=== PATIENT | male | born 1950 | race African-American/Black ===

== ENCOUNTER 2017-06-11 10:44 | Emergency (ER) | payer MEDICARE, MEDICAID ==
[~2017-06-11] VITALS: Ht 170.2 cm; Wt 73.0 kg
[~2017-06-11 10:44] MED LIST: ASPI-1159 PO; ASPI-518; FOLIC ACID; METH10TA2 PO; MULTIVITAMIN
[2017-06-11 10:54] VITALS: BP 135/78
[2017-06-11] MEDS ORDERED: CARBAMIDE PEROXIDE 6.5% OTIC SOLN 15ML EACH EAR ONE (11:15)
== END 2017-06-11 13:00 | disposition home or self-care (01) ==
LOC: ER 12:31
DX: H61.23 Impacted cerumen, bilateral (principal); J44.9 Chronic obstructive pulmonary disease, unspecified; F11.10 Opioid abuse, uncomplicated; F17.210 Nicotine dependence, cigarettes, uncomplicated
CPT/HCPCS: 69209; 99283

== ENCOUNTER 2017-09-07 16:27 | Emergency (ER) | payer MEDICARE, MEDICAID ==
[~2017-09-07] VITALS: Ht 167.6 cm; Wt 70.0 kg
[2017-09-07 16:50] VITALS: BP 141/77
== END 2017-09-07 19:12 | disposition home or self-care (01) ==
LOC: ER 16:40
DX: R42 Dizziness and giddiness (principal); R00.1 Bradycardia, unspecified; Z85.46 Personal history of malignant neoplasm of prostate; Z79.82 Long term (current) use of aspirin
CPT/HCPCS: 93005; 99283

== ENCOUNTER 2018-02-07 00:09 | Emergency (ER) | payer MEDICARE, MEDICAID ==
[~2018-02-07] VITALS: Ht 172.7 cm; Wt 72.7 kg
[2018-02-07] MEDS ORDERED: SODIUM CHLORIDE 0.9% 1,000 ML IV ONE (01:50)
[2018-02-07] MEDS ORDERED: ASPIRIN 81MG TABLET PO ONE (02:00)
[2018-02-07 02:20] VITALS: BP 128/75
== END 2018-02-07 03:08 | disposition home or self-care (01) ==
LOC: ER 00:31 → CANBEDREQ 03:28
DX: R07.89 Other chest pain (principal); R03.0 Elevated blood-pressure reading, without diagnosis of hypertension; F17.210 Nicotine dependence, cigarettes, uncomplicated; Z85.46 Personal history of malignant neoplasm of prostate
CPT/HCPCS: 71045; 93005; 99285; C1893; J7030

== ENCOUNTER 2018-02-10 17:05 | Emergency (ER) | payer MEDICARE, MEDICAID ==
[~2018-02-10] VITALS: Ht 167.6 cm; Wt 71.0 kg
[2018-02-10] MEDS ORDERED: METHYLPREDNISOLONE SOD SUCC 125 MG/2 ML VIAL IV STA (18:24)
[2018-02-10] MEDS ORDERED: ONDANSETRON HCL 4MG/2ML VIAL IV STA (18:24)
[2018-02-10] MEDS ORDERED: MORPHINE SULFATE 4 MG/ML CPJ (NOT FOR IM USE) IV STA (18:24)
[2018-02-10] MEDS ORDERED: SODIUM CHLORIDE 0.9% 1,000 ML IV ONE (18:24)
[2018-02-10] MEDS ORDERED: IPRATROPIUM/ALBUTEROL 0.5-3(2.5)MG/3ML NEB HHN ONE (18:30)
[2018-02-10] MEDS ORDERED: LEVOFLOXACIN 500MG PREMIX 100 ML IV ONE (18:30)
[2018-02-10 18:40] LABS: BASOPHILS % 0.8 % (0.0-2.0); EOSINOPHILS % 0.9 % (0.0-5.0); HEMATOCRIT. 34.6 % (42.0-52.0); HEMOGLOBIN. 11.3 g/dL (14.0-18.0); LYMPHOCYTES % 20.3 % (20.0-50.0); MEAN CORPUSCULAR HEMOGLOBIN 24.2 pg (28.0-32.0); MEAN CORPUSCULAR VOLUME 73.9 fL (80.0-94.0); MEAN PLATELET VOLUME 7.1 fl (7.4-10.4); MONOCYTES % 6.7 % (2.0-8.0); NEUTROPHILS % 71.3 % (40.0-76.0); PLATELET 276 x1000/uL (130-400); RED BLOOD CELL COUNT 4.68 mill/uL (4.7-6.1)
[2018-02-10 18:45] LABS: CHLORIDE 105 mEq/L (98-107)
[2018-02-10 18:48] LABS: INR 1.1; PARTIAL THROMBOPLASTIN TIME 23.6 sec (23.4-31.0)
[2018-02-10] MEDS ORDERED: LEVOFLOXACIN 500MG TABLET PO ONE (20:00)
[2018-02-10 20:05] VITALS: BP 145/90
== END 2018-02-10 20:08 | disposition home or self-care (01) ==
LOC: ER 17:12
DX: J40 Bronchitis, not specified as acute or chronic (principal); R07.89 Other chest pain; F17.210 Nicotine dependence, cigarettes, uncomplicated; F11.10 Opioid abuse, uncomplicated; Z79.82 Long term (current) use of aspirin
CPT/HCPCS: 36415; 71045; 80053; 83690; 83880; 84484; 85025; 85610; 85730; 93005; 94640; 96361; 96374; 96375; 99285; 99406; J1956; J2270; J2405; J2930; J7030; J7620

== ENCOUNTER 2018-05-23 23:49 | Emergency (ER) | payer MEDICARE, MEDICAID ==
[~2018-05-23] VITALS: Ht 170.2 cm; Wt 63.0 kg
[2018-05-24 01:11] LABS: HEMATOCRIT. 37.4 % (42.0-52.0); MEAN CORPUSCULAR HEMOGLOBIN 23.6 pg (28.0-32.0); MEAN CORPUSCULAR VOLUME 73.7 fL (80.0-94.0); MEAN PLATELET VOLUME 7.5 fl (7.4-10.4); PLATELET 204 x1000/uL (130-400); RED BLOOD CELL COUNT 5.07 mill/uL (4.7-6.1); RED CELL DISTRIBUTION WIDTH 18.7 % (11.6-14.6)
[2018-05-24 01:18] LABS: CHLORIDE 103 mEq/L (98-107)
[2018-05-24] MEDS ORDERED: CEPHALEXIN 500MG CAPSULE PO ONE (01:30)
[2018-05-24] MEDS ORDERED: SULFAMETHOXAZOLE/TRIMETHOPRIM 800/160MG TABLET PO ONE (01:30)
[2018-05-24] MEDS ORDERED: IBUPROFEN 600MG TABLET PO ONE (01:45)
[2018-05-24] MEDS ORDERED: CEPHALEXIN 500MG CAPSULE PO NR (02:00)
[2018-05-24 02:30] VITALS: BP 138/72
[2018-05-24 05:16] LABS: ATYPICAL LYMPHOCYTES 2
[2018-05-24 05:17] LABS: PLATELET ESTIMATE NORMAL
== END 2018-05-24 03:04 | disposition home or self-care (01) ==
LOC: ER 23:49 → CANBEDREQ 05-24 04:19
DX: L03.317 Cellulitis of buttock (principal); I51.9 Heart disease, unspecified; F11.10 Opioid abuse, uncomplicated; Z85.9 Personal history of malignant neoplasm, unspecified
CPT/HCPCS: 36415; 80053; 83605; 85025; 87040; 99284

== ENCOUNTER 2018-10-27 12:54 | Emergency (ER) | payer MEDICARE, MEDICAID ==
[~2018-10-27] VITALS: Ht 170.2 cm; Wt 65.0 kg
[2018-10-27 14:19] LABS: BASOPHILS % 0.5 % (0.0-2.0); EOSINOPHILS % 0.2 % (0.0-5.0); HEMATOCRIT. 34.5 % (42.0-52.0); HEMOGLOBIN. 10.9 g/dL (14.0-18.0); LYMPHOCYTES % 14.9 % (20.0-50.0); MEAN CORPUSCULAR HEMOGLOBIN 23.2 pg (28.0-32.0); MEAN CORPUSCULAR VOLUME 73.5 fL (80.0-94.0); MEAN PLATELET VOLUME 7.7 fl (7.4-10.4); MONOCYTES % 5.4 % (2.0-8.0); PLATELET 223 x1000/uL (130-400); RED CELL DISTRIBUTION WIDTH 18.6 % (11.6-14.6)
[2018-10-27 14:26] LABS: CHLORIDE 106 mEq/L (98-107)
[2018-10-27 15:28] VITALS: BP 137/89
== END 2018-10-27 15:14 | disposition home or self-care (01) ==
LOC: ER 13:04
DX: R07.89 Other chest pain (principal); R94.31 Abnormal electrocardiogram [ECG] [EKG]; R91.8 Other nonspecific abnormal finding of lung field; R03.0 Elevated blood-pressure reading, without diagnosis of hypertension; Z72.820 Sleep deprivation; F17.210 Nicotine dependence, cigarettes, uncomplicated; Z71.6 Tobacco abuse counseling; F11.10 Opioid abuse, uncomplicated; F19.10 Other psychoactive substance abuse, uncomplicated; Z79.82 Long term (current) use of aspirin; Z79.899 Other long term (current) drug therapy; I51.7 Cardiomegaly
CPT/HCPCS: 36415; 71045; 80048; 84484; 93005; 99284; 99406

== ENCOUNTER 2018-11-06 14:17 | Emergency (ER) | payer MEDICARE, MEDICAID ==
[~2018-11-06] VITALS: Ht 172.7 cm; Wt 80.0 kg
[2018-11-06 16:22] LABS: BASOPHILS % 0.7 % (0.0-2.0); HEMATOCRIT. 33.9 % (42.0-52.0); HEMOGLOBIN. 10.6 g/dL (14.0-18.0); LYMPHOCYTES % 19.1 % (20.0-50.0); MEAN CORPUSCULAR VOLUME 73.5 fL (80.0-94.0); MEAN PLATELET VOLUME 7.9 fl (7.4-10.4); MONOCYTES % 6.7 % (2.0-8.0); NEUTROPHILS % 72.5 % (40.0-76.0); PLATELET 259 x1000/uL (130-400); RED BLOOD CELL COUNT 4.61 mill/uL (4.7-6.1); RED CELL DISTRIBUTION WIDTH 18.6 % (11.6-14.6)
[2018-11-06 16:29] LABS: CHLORIDE 107 mEq/L (98-107)
[2018-11-06 17:47] VITALS: BP 112/70
== END 2018-11-06 17:52 | disposition home or self-care (01) ==
LOC: ER 14:17
DX: J02.9 Acute pharyngitis, unspecified (principal); R05 Cough; R51 Headache; R53.1 Weakness; E16.2 Hypoglycemia, unspecified; F17.200 Nicotine dependence, unspecified, uncomplicated; Z98.890 Other specified postprocedural states; Z79.82 Long term (current) use of aspirin; Z79.899 Other long term (current) drug therapy
CPT/HCPCS: 36415; 71045; 87070; 87430; 99284; 99406

== ENCOUNTER 2018-12-06 19:18 | Emergency (ER) | payer MEDICARE, MEDICAID ==
[~2018-12-06] VITALS: Ht 182.9 cm; Wt 82.0 kg
[2018-12-06 20:04] VITALS: BP 180/90
== END 2018-12-07 01:30 | disposition left against medical advice (07) ==
LOC: ER 19:18
DX: M79.605 Pain in left leg (principal); Z53.21 Procedure and treatment not carried out due to patient leaving prior to being seen by health care provider

== ENCOUNTER 2018-12-24 11:59 | Emergency (ER) | payer MEDICARE, MEDICAID ==
[~2018-12-24] VITALS: Ht 170.2 cm; Wt 86.0 kg
[2018-12-24 12:01] VITALS: BP 115/71
== END 2018-12-24 14:24 | disposition left against medical advice (07) ==
LOC: ER 11:59
DX: R07.2 Precordial pain (principal); R10.9 Unspecified abdominal pain; I51.9 Heart disease, unspecified; K59.00 Constipation, unspecified; Z85.9 Personal history of malignant neoplasm, unspecified; Z79.82 Long term (current) use of aspirin; Z79.899 Other long term (current) drug therapy
CPT/HCPCS: 93005; 99283

== ENCOUNTER 2019-01-07 13:14 | Emergency (ER) | payer MEDICARE, MEDICAID ==
[~2019-01-07] VITALS: Ht 180.3 cm; Wt 82.0 kg
[2019-01-07] MEDS ORDERED: ALBUTEROL (0.083%) 2.5MG/3ML NEB HHN STA (13:22)
[2019-01-07] MEDS ORDERED: IPRATROPIUM BROMIDE (0.02%) 0.5MG/2.5ML NEB HHN STA (13:22)
[2019-01-07] MEDS ORDERED: SODIUM CHLORIDE 0.9% 1,000 ML IV ONE (13:22)
[2019-01-07] MEDS ORDERED: METHYLPREDNISOLONE SOD SUCC 125 MG/2 ML VIAL IV ONE (13:45)
[2019-01-07 13:54] LABS: BASOPHILS % 0.6 % (0.0-2.0); EOSINOPHILS % 1.2 % (0.0-5.0); HEMATOCRIT. 35.1 % (42.0-52.0); HEMOGLOBIN. 11.4 g/dL (14.0-18.0); LYMPHOCYTES % 26.9 % (20.0-50.0); MEAN CORPUSCULAR HEMOGLOBIN 24.1 pg (28.0-32.0); MEAN CORPUSCULAR VOLUME 74.2 fL (80.0-94.0); MEAN PLATELET VOLUME 7.8 fl (7.4-10.4); MONOCYTES % 5.9 % (2.0-8.0); NEUTROPHILS % 65.4 % (40.0-76.0); PLATELET 189 x1000/uL (130-400); RED BLOOD CELL COUNT 4.73 mill/uL (4.7-6.1); RED CELL DISTRIBUTION WIDTH 16.8 % (11.6-14.6)
[2019-01-07 13:58] LABS: CHLORIDE 106 mEq/L (98-107)
[2019-01-07 14:14] LABS: INR 1.1; PARTIAL THROMBOPLASTIN TIME 24.7 sec (23.4-31.0); PROTHROMBIN TIME 10.8 sec (9.1-11.1)
[2019-01-07 16:00] VITALS: BP 128/74
[2019-01-07] MEDS ORDERED: NICOTINE 14MG PATCH TD SCH (16:30)
[2019-01-07] MEDS ORDERED: IPRATROPIUM/ALBUTEROL 0.5-3(2.5)MG/3ML NEB HHN PRN (16:30)
[2019-01-07] MEDS ORDERED: BUDESONIDE 0.25MG/2ML NEB HHN SCH (16:30)
[2019-01-07] MEDS ORDERED: IPRATROPIUM/ALBUTEROL 0.5-3(2.5)MG/3ML NEB HHN SCH (18:00)
[2019-01-07] MEDS ORDERED: GUAIFENESIN 600MG ER TABLET PO SCH (21:00)
== END 2019-01-07 16:31 | disposition home or self-care (01) ==
LOC: ER 13:14 → CANBEDREQ 19:09
DX: J44.1 Chronic obstructive pulmonary disease with (acute) exacerbation (principal); I11.9 Hypertensive heart disease without heart failure; Z87.01 Personal history of pneumonia (recurrent); Z79.899 Other long term (current) drug therapy
CPT/HCPCS: 36415; 71045; 80053; 83880; 84484; 85025; 85610; 85730; 93005; 94640; 96374; 99284; J2930; J7030; J7611

== ENCOUNTER 2019-01-28 19:32 | Emergency (ER) | payer MEDICARE, MEDICAID ==
[~2019-01-28] VITALS: Ht 170.2 cm; Wt 72.0 kg
[2019-01-28 19:38] VITALS: BP 165/110
== END 2019-01-28 20:45 | disposition left against medical advice (07) ==
LOC: ER 19:32
DX: R07.89 Other chest pain (principal); Z53.21 Procedure and treatment not carried out due to patient leaving prior to being seen by health care provider